=== PATIENT | female | born 1940 | race Caucasian/White ===

== ENCOUNTER 2021-06-04 12:16 | Emergency (ER) | payer MEDICARE, MEDICAID ==
[~2021-06-04] VITALS: Ht 147.3 cm; Wt 70.8 kg
[2021-06-04 12:16] VITALS: BP_SYST 119
[2021-06-04 13:52] VITALS: BP_SYST 119
== END 2021-06-04 13:52 | disposition home or self-care (01) ==
LOC: SED 12:16
DX: B34.9 Viral infection, unspecified (principal); Z20.822 Contact with and (suspected) exposure to COVID-19
CPT/HCPCS: 36415; 99283